=== PATIENT | female | born 1945 | race Caucasian/White ===

== ENCOUNTER 2021-02-13 07:58 | Outpatient (CLI) | payer MEDICARE, BC | END 2021-02-13 07:59 | disposition home or self-care (01) | LOC: CSHMAMMO 07:58 | PROVIDERS: ATTEND Family Medicine | DX: Z12.31 Encounter for screening mammogram for malignant neoplasm of breast (principal) | CPT/HCPCS: 77063; 77067 ==

== ENCOUNTER 2021-12-11 11:04 | Emergency (ER) | payer MEDICARE | END 2021-12-11 12:16 | disposition home or self-care (01) | LOC: CSHERS 11:04 | DX: S91.302A Unspecified open wound, left foot, initial encounter (principal); W22.8XXA Striking against or struck by other objects, initial encounter; K21.9 Gastro-esophageal reflux disease without esophagitis | CPT/HCPCS: 99283 ==

== ENCOUNTER 2022-01-01 11:31 | Outpatient (CLI) | payer MEDICARE ==
[2022-01-02 07:53] LABS: SARS-CoV-2 PCR by NAA Not Detected (NotDetected)
== END 2022-01-01 11:32 | disposition home or self-care (01) ==
LOC: CSHLAB 11:31
PROVIDERS: ATTEND Internal Medicine Gastroenterology
DX: Z20.822 Contact with and (suspected) exposure to COVID-19 (principal); R10.9 Unspecified abdominal pain; K63.5 Polyp of colon
CPT/HCPCS: U0003; U0005

== ENCOUNTER 2022-01-04 09:17 | Day surgery (SDC) | payer MEDICARE ==
[2022-01-01 10:53] VITALS: BMI 25.0
[2022-01-04] MEDS ORDERED: Lidocaine 1% MPF 2 ML VIAL ONE (10:15)
[2022-01-04] MEDS ORDERED: Ondansetron PF 4 MG/2 ML Vial ONE (10:50)
[2022-01-04] MEDS ORDERED: diphenhydrAMINE 50 MG/ML VIAL ONE (10:50)
[2022-01-04] MEDS ORDERED: Dexamethasone 4 mg/ml Vial ONE (10:50)
[2022-01-04] MEDS ORDERED: PROPOFOL 20 ML ONE (11:23)
== END 2022-01-04 12:07 | disposition home or self-care (01) ==
LOC: CSHSDC 09:17
PROVIDERS: ATTEND Internal Medicine Gastroenterology
PROC: 0DB68ZZ Excision of Stomach, Via Natural or Artificial Opening Endoscopic (ICD-10-PCS; principal; 2022-01-04)
PROC: 0DJD8ZZ Inspection of Lower Intestinal Tract, Via Natural or Artificial Opening Endoscopic (ICD-10-PCS; 2022-01-04)
DX: R10.9 Unspecified abdominal pain (principal); K63.5 Polyp of colon; K31.7 Polyp of stomach and duodenum; K44.9 Diaphragmatic hernia without obstruction or gangrene; K57.30 Diverticulosis of large intestine without perforation or abscess without bleeding; K64.9 Unspecified hemorrhoids; K21.9 Gastro-esophageal reflux disease without esophagitis
CPT/HCPCS: 88305; J1100; J1200; J2405; J2704

== ENCOUNTER 2022-01-19 12:33 | Emergency (ER) | payer MEDICARE ==
[2022-01-19] MEDS ORDERED: Morphine 4 MG/ML VIAL ONE (13:44)
[2022-01-19] MEDS ORDERED: Ondansetron PF 4 MG/2 ML Vial ONE (13:44)
[2022-01-19 14:15] LABS: #Monocytes 0.3 10x3/uL (0.0-1.1); #Neutrophils 15.7 10x3/uL (1.5-8.4); %Basophils 0.1 % (0.0-2.0); %Eosinophils 0.1 % (0.0-6.0); %Lymphocytes 0.9 % (18.0-47.0); %Monocytes 1.8 % (0.0-10.0); %Neutrophils 96.7 % (40.0-75.0); Hemoglobin 14.6 g/dL (12.0-15.5); Mean Corpuscular Hemoglobin 32.4 pg (27.0-33.0); Mean Corpuscular Volume 98.2 fl (81.6-98.3); Mean Platelet Volume 9.2 fl (7.4-10.4); Platelet Count 340 10x3/uL (150-450); RBC Distribution Width 12.6 % (11.5-14.5); White Blood Cell (WBC) Count 16.3 10x3/uL (3.5-10.5)
[2022-01-19 14:29] LABS: ALT (SGPT) 15 U/L (8-55); AST (SGOT) 21 U/L (5-34); Albumin 3.7 g/dL (3.4-4.8); Alkaline Phosphatase 57 U/L (40-110); Anion Gap 14 mmol/L (10-20); BUN (Urea Nitrogen) 23 mg/dL (9.8-20.1); Bilirubin, Total 0.6 mg/dL (0.2-1.2); Calc. Creatinine Clearance 0 mL/min (70-130); Calcium 8.1 mg/dL (7.8-10.44); Carbon Dioxide 24 mmol/L (23-31); Chloride 104 mmol/L (98-107); Globulin 3.2 g/dL (2.4-3.5); Glucose 109 mg/dL (83-110); Lipase 245 U/L (8-78); Potassium 3.9 mmol/L (3.5-5.1); Protein, Total 6.9 g/dL (5.8-8.1); Sodium 138 mmol/L (136-145)
== END 2022-01-19 16:37 | disposition home or self-care (01) ==
LOC: CSHERS 12:33
DX: K85.90 Acute pancreatitis without necrosis or infection, unspecified (principal); K21.9 Gastro-esophageal reflux disease without esophagitis; Z79.899 Other long term (current) drug therapy
CPT/HCPCS: 36415; 71045; 74177; 80053; 83605; 83690; 83880; 84484; 85025; 87040; 93005; 96374; 96375; J2270; J2405

== ENCOUNTER 2022-02-21 14:48 | Outpatient (CLI) | payer MEDICARE | END 2022-02-21 14:49 | disposition home or self-care (01) | LOC: CSHMAMMO 14:48 | PROVIDERS: ATTEND Family Medicine | DX: M85.89 Other specified disorders of bone density and structure, multiple sites (principal); Z78.0 Asymptomatic menopausal state | CPT/HCPCS: 77080 ==

== ENCOUNTER 2023-02-15 10:16 | Outpatient (CLI) | payer MEDICARE | END 2023-02-15 10:17 | disposition home or self-care (01) | LOC: CSHMAMMO 10:16 | PROVIDERS: ATTEND Family Medicine | DX: Z12.31 Encounter for screening mammogram for malignant neoplasm of breast (principal); Z80.3 Family history of malignant neoplasm of breast | CPT/HCPCS: 77063; 77067 ==

== ENCOUNTER 2023-09-23 14:29 | Outpatient (CLI) | payer MEDICARE | END 2023-09-23 14:30 | disposition home or self-care (01) | LOC: CSHMRI 14:29 | PROVIDERS: ATTEND Nurse Practitioner Family | DX: M48.062 Spinal stenosis, lumbar region with neurogenic claudication (principal); M47.816 Spondylosis without myelopathy or radiculopathy, lumbar region | CPT/HCPCS: 72148 ==

== ENCOUNTER 2023-10-07 07:49 | Outpatient (CLI) | payer MEDICARE | END 2023-10-07 07:50 | disposition home or self-care (01) | LOC: CSHMRI 07:49 | PROVIDERS: ATTEND Anesthesiology Pain Medicine | DX: M76.891 Other specified enthesopathies of right lower limb, excluding foot (principal); M16.11 Unilateral primary osteoarthritis, right hip; M25.851 Other specified joint disorders, right hip; R93.6 Abnormal findings on diagnostic imaging of limbs; M25.451 Effusion, right hip; M65.9 Synovitis and tenosynovitis, unspecified; M62.89 Other specified disorders of muscle ==